=== PATIENT | female | born 1955 | race Caucasian/White ===

== ENCOUNTER 2022-12-01 18:22 | Emergency (ER) | payer OTHER ==
[2022-12-01 20:14] VITALS: BP 147/70; PULSE 74
== END 2022-12-01 20:10 | disposition home or self-care (01) ==
LOC: FB.ED 18:22
DX: R04.0 Epistaxis (principal); I10 Essential (primary) hypertension; Z91.09 Other allergy status, other than to drugs and biological substances; Z79.82 Long term (current) use of aspirin
CPT/HCPCS: 30903; 99283-25

== ENCOUNTER 2023-11-14 06:59 | Day surgery (SDC) | payer MEDICARE, OTHER ==
[2023-11-14] MEDS ORDERED: Lidocaine 1% PF 2 ML SDV IV ONE (07:00)
[2023-11-14] MEDS ORDERED: Glycopyrrolate 0.2 MG/ML 5 ML MDV IV ONE (07:00)
[2023-11-14] MEDS ORDERED: Propofol 200 MG/20 ML SDV IV ONE (07:00)
[2023-11-14] MEDS ORDERED: Sodium Chloride 0.9% 10 ML Syringe FLUSH PRN (07:00)
[2023-11-14] MEDS: Lactated Ringers 1,000 ML IV SCH (07:52)
[2023-11-14] MEDS: Simethicone Drops 40 MG/0.6 ML 30 ML Bottle ONE (08:37)
[2023-11-14 10:47] VITALS: BP 140/72; PULSE 89
== END 2023-11-14 10:20 | disposition home or self-care (01) ==
LOC: FB.SDS 06:59
PROVIDERS: ATTEND Surgery
DX: Z12.11 Encounter for screening for malignant neoplasm of colon (principal); K57.30 Diverticulosis of large intestine without perforation or abscess without bleeding; Z86.0100 Personal history of colon polyps, unspecified; Z80.0 Family history of malignant neoplasm of digestive organs; I10 Essential (primary) hypertension; J45.909 Unspecified asthma, uncomplicated; Z79.899 Other long term (current) drug therapy
CPT/HCPCS: A9270; G0105; J1596; J2704; J7120

== ENCOUNTER 2024-04-30 05:40 | Emergency (ER) | payer MEDICARE, OTHER ==
[2024-04-30 05:57] VITALS: BP 164/83; PULSE 85
[2024-04-30] MEDS: Albuterol/Ipratropium 3.0-0.5 MG/3 ML Neb Soln NEB ONE (06:36)
[2024-04-30 06:56] LABS: BASOPHILS PERCENT AUTO 0.3 % (0.2-1.5); EOSINOPHILS ABSOLUTE AUTO 0.4 x10-3/uL (0.0-0.8); EOSINOPHILS PERCENT AUTO 4.8 % (0.6-8.1); HEMATOCRIT 40.7 % (34.2-48.2); HEMOGLOBIN 13.7 g/dL (11.4-15.5); LYMPHOCYTES ABSOLUTE AUTO 1.5 x10-3/uL (1.0-4.4); LYMPHOCYTES PERCENT AUTO 17.8 % (18.4-52.1); MEAN CORPUSCULAR HEMOGLOBIN 32.1 pg (23.9-33.9); MEAN CORPUSCULAR HGB CONC 33.6 g/dL (31.9-34.8); MEAN CORPUSCULAR VOLUME 95.6 fL (76.7-100.5); MEAN PLATELET VOLUME 8.3 fL (7.1-12.4); MONOCYTES ABSOLUTE AUTO 0.6 x10-3/uL (0.3-1.0); NEUTROPHILS PERCENT AUTO 70.2 % (30.8-76.2); PLATELET COUNT,PLT 250 x10(3)uL (151-488); RED BLOOD CELL COUNT 4.26 x10(6)uL (3.60-5.20); RED CELL DISTRIBUTION WIDTH 13.4 % (12.3-16.5); WHITE BLOOD CELL COUNT,WBC 8.5 x10-3/uL (3.0-10.3)
[2024-04-30 07:00] LABS: BLOOD UREA NITROGEN,BUN 23 mg/dL (7-18); BUN/CREATININE RATIO 16.4 (9-20); CALCIUM 9.3 mg/dL (8.6-10.2); CARBON DIOXIDE,CO2 28 mmol/L (21-32); CHLORIDE,CL 98 mmol/L (100-110); CREATININE 1.4 mg/dL (0.55-1.02); ESTIMATED GFR 41 mL/min (>60); GLUCOSE RANDOM 108 mg/dL (80-116); POTASSIUM,K 4.1 mmol/L (3.5-5.3); SODIUM,NA 134 mmol/L (135-145)
[2024-04-30 07:06] LABS: A/G RATIO 1.1; ALANINE AMINOTRANSFERASE,ALT 24 U/L (12-36); ALBUMIN 3.6 g/dL (3.2-4.6); ALKALINE PHOSPHATASE 109 IU/L (56-112); ASPARTATE AMNIOTRANSFERASE,AST 24 IU/L (5-25); BILIRUBIN TOTAL 0.9 mg/dL (0.1-1.3); MAGNESIUM 1.8 mg/dL (1.8-2.5)
[2024-04-30 07:13] LABS: TROPONIN I 7.8 pg/mL (4.0-60.3)
[2024-04-30] MEDS: Sodium Chloride 0.9% 500 ML IV ONE (08:42)
[2024-04-30] MEDS: Iopamidol 755 Mg/ML 100 ML Bottle IV SCH (08:47)
== END 2024-04-30 09:45 | disposition home or self-care (01) ==
LOC: FB.ED 05:40
DX: J45.41 Moderate persistent asthma with (acute) exacerbation (principal); E07.89 Other specified disorders of thyroid; Z91.048 Other nonmedicinal substance allergy status; Z79.899 Other long term (current) drug therapy; E66.9 Obesity, unspecified
CPT/HCPCS: 36415; 71045; 71275; 80053; 83735; 83880; 84484; 85025; 85379; 93005; 94640; 96360; 99285; A9270; Q9967; 93010; 99284